=== PATIENT | female | born 1940 | race Caucasian/White ===

== ENCOUNTER 2016-12-20 10:28 | Inpatient (IN) | payer OTHER ==
[~2016-12-20] VITALS: Ht 149.9 cm; Wt 26.3 kg
[2016-12-20 10:31] VITALS: Ht 149.9 cm; Wt 26.3 kg
[2016-12-20] MEDS ORDERED: ASPIRIN 325 MG TAB PO STA (10:51)
--- NOTE | 2016-12-20 11:19 | ERD ---
ER Documentation Chief Complaint Chief Complaint chest pain today, sent by stephanie SALCEDO This is a 76-year-old [place] Citizen-speaking female with a known history of hypertension that went to her PCP today as she was complaining of chest pain upon awakening this morning roughly 6 hours prior to arrival. The patient stated the pain was a pressure-like sensation, 8 out of 10 in intensity with no radiation of the chest pain her neck arm back or jaw. The patient did not take any analgesic medication prior to arrival. She has had no fevers or shaking or chills. She denies any shortness of breath at rest or exertion no swelling of her lower extremities. The patient has had a previous bilateral mastectomy 30 years prior to arrival and 1 year ago [place] indicated she had an abdominal mass that was removed and has also had removal of 1 of her kidneys one year ago in [place]. She stated she was feeling a burning-like sensation in the mid chest wall but states she has had this in the past with GERD but indicates that the pressure in the left chest wall is new. Her PCP sent her immediately to the emergency department to be further evaluated. She states her symptoms are making her feel very anxious but she denies any suicidal homicidal thoughts or ideations ROS All systems reviewed and are negative except as per history of present illness. PMhx/Soc History of Surgery: Yes (MARQUES MASTECTOMY) Anesthesia Reaction: No Hx Neurological Disorder: No Hx Respiratory Disorders: No Hx Cardiac Disorders: Yes (HTN) Hx Psychiatric Problems: No Hx Miscellaneous Medical Probl: No Hx Alcohol Use: No Hx Substance Use: No Hx Tobacco Use: No Smoking Status: Never smoker Physical Exam Vitals Vital Signs Date Time Temp Pulse Resp B/P Pulse Ox O2 Delivery O2 Flow Rate FiO2 12/20/16 10:31 97.6 62 18 188/104 94 Physical Exam Constitutional:Well-developed. Well-nourished. HEENT:Normocephalic. Atraumatic.Pupils were equal round reactive to light. Moist mucous membranes.No tonsillar exudates. Neck: No nuchal rigidity. No lymphadenopathy. No posterior cervical spine tenderness or step-offs. Respiratory: Not using accessory muscles of respiration.Lungs were clear to auscultation bilaterally. No rhonchi. No rales. No wheezing. Cardiovascular: Regular rate regular rhythm.No murmurs. No rubs were appreciated.S1, S2 normal. Distal pulses are palpable 2+ bilaterally. GI: Abdomen was soft. Nontender. Non Distended. No pulsatile abdominal masses or bruits. No rebound. No guarding. Bowel sounds were present and normal. Muscle skeletal: Full range of motion of both the upper and lower extremities bilaterally.Normal muscle tone.No assymetrical calf tenderness or swelling. Skin: No petechia, no purpura. No lesions on the palms or the soles of the feet. No maculopapular rash. NEURO: Patient was alert, awake, orientated x3.No facial droop. Gait observed and normal with no ataxia.Speech had regular rate and rhythm. No focal neurological deficits. Results 24 hrs Laboratory Tests Test 12/20/16 11:03 White Blood Count Pending Red Blood Count Pending Hemoglobin Pending Hematocrit Pending Mean Corpuscular Volume Pending Mean Corpuscular Hemoglobin Pending Mean Corpuscular Hemoglobin Concent Pending Red Cell Distribution Width Pending Platelet Count Pending Mean Platelet Volume Pending Current Medications Medications (Trade) Dose Ordered Sig/Amanda Route PRN Reason Start Time Stop Time Status Last Admin Dose Admin Aspirin (Aspirin) 325 mg ONCE STAT PO 12/20/16 10:51 12/20/16 10:52 DC 12/20/16 11:18 Nitroglycerin (Nitroglycerin (Sl Tab) 0.4 Mg) 1 tab Q5M UP TO 3 DOSES PRN SL CHEST PAIN 12/20/16 11:30 12/20/16 11:18 Procedures/MDM The patient presented to the emergency department with chest pain. My clinical evaluation and workup was to distinguish minor causes of chest pain from acute life threatening conditions such as myocardial infarction, pulmonary embolism, aortic dissection, esophageal rupture, cardiac tamponade. The patient was placed on a personnel monitor and continuous pulse oximetry. IV access established by nursing staff. The patient was given 325 mg of aspirin and 0.4 mg of sublingual nitroglycerin with improvement of her chest pain. 12 Lead EKG tracing ordered and reviewed by myself showed: Normal sinus rhythm of 60 bpm and no arrhythmia. MN interval normal. QRS duration normal. No ST segment elevation No ST segment depression. No changes consistent with acute ischemia. Given the patient's multiple cardiac risk factors I did feel she required admission for serial 12-lead EKG tracings and cardiac set of enzymes. The patient will be admitted to the panel physician for observation Departure Diagnosis: Primary Impression: Chest pain Chest pain type: unspecified Qualified Code: R07.9 - Chest pain, unspecified type Condition: Serious HARJINDER MCDONALD Dec 20, 2016 11:19
--- NOTE | 2016-12-20 11:19 | ERD ---
ER Documentation Chief Complaint Chief Complaint chest pain today, sent by stephanie SALCEDO This is a 76-year-old [place]-speaking female with a known history of hypertension that went to her PCP today as she was complaining of chest pain upon awakening this morning roughly 6 hours prior to arrival. The patient stated the pain was a pressure-like sensation, 8 out of 10 in intensity with no radiation of the chest pain her neck arm back or jaw. The patient did not take any analgesic medication prior to arrival. She has had no fevers or shaking or chills. She denies any shortness of breath at rest or exertion no swelling of her lower extremities. The patient has had a previous bilateral mastectomy 30 years prior to arrival and 1 year ago [place] indicated she had an abdominal mass that was removed and has also had removal of 1 of her kidneys one year ago in [place]. She stated she was feeling a burning-like sensation in the mid chest wall but states she has had this in the past with GERD but indicates that the pressure in the left chest wall is new. Her PCP sent her immediately to the emergency department to be further evaluated. She states her symptoms are making her feel very anxious but she denies any suicidal homicidal thoughts or ideations ROS All systems reviewed and are negative except as per history of present illness. PMhx/Soc History of Surgery: Yes (MARQUES MASTECTOMY) Anesthesia Reaction: No Hx Neurological Disorder: No Hx Respiratory Disorders: No Hx Cardiac Disorders: Yes (HTN) Hx Psychiatric Problems: No Hx Miscellaneous Medical Probl: No Hx Alcohol Use: No Hx Substance Use: No Hx Tobacco Use: No Smoking Status: Never smoker Physical Exam Vitals Vital Signs Date Time Temp Pulse Resp B/P Pulse Ox O2 Delivery O2 Flow Rate FiO2 12/20/16 10:31 97.6 62 18 188/104 94 Physical Exam Constitutional:Well-developed. Well-nourished. HEENT:Normocephalic. Atraumatic.Pupils were equal round reactive to light. Moist mucous membranes.No tonsillar exudates. Neck: No nuchal rigidity. No lymphadenopathy. No posterior cervical spine tenderness or step-offs. Respiratory: Not using accessory muscles of respiration.Lungs were clear to auscultation bilaterally. No rhonchi. No rales. No wheezing. Cardiovascular: Regular rate regular rhythm.No murmurs. No rubs were appreciated.S1, S2 normal. Distal pulses are palpable 2+ bilaterally. GI: Abdomen was soft. Nontender. Non Distended. No pulsatile abdominal masses or bruits. No rebound. No guarding. Bowel sounds were present and normal. Muscle skeletal: Full range of motion of both the upper and lower extremities bilaterally.Normal muscle tone.No assymetrical calf tenderness or swelling. Skin: No petechia, no purpura. No lesions on the palms or the soles of the feet. No maculopapular rash. NEURO: Patient was alert, awake, orientated x3.No facial droop. Gait observed and normal with no ataxia.Speech had regular rate and rhythm. No focal neurological deficits. Results 24 hrs Laboratory Tests Test 12/20/16 11:03 White Blood Count Pending Red Blood Count Pending Hemoglobin Pending Hematocrit Pending Mean Corpuscular Volume Pending Mean Corpuscular Hemoglobin Pending Mean Corpuscular Hemoglobin Concent Pending Red Cell Distribution Width Pending Platelet Count Pending Mean Platelet Volume Pending Current Medications Medications (Trade) Dose Ordered Sig/Amanda Route PRN Reason Start Time Stop Time Status Last Admin Dose Admin Aspirin (Aspirin) 325 mg ONCE STAT PO 12/20/16 10:51 12/20/16 10:52 DC 12/20/16 11:18 Nitroglycerin (Nitroglycerin (Sl Tab) 0.4 Mg) 1 tab Q5M UP TO 3 DOSES PRN SL CHEST PAIN 12/20/16 11:30 12/20/16 11:18 Procedures/MDM The patient presented to the emergency department with chest pain. My clinical evaluation and workup was to distinguish minor causes of chest pain from acute life threatening conditions such as myocardial infarction, pulmonary embolism, aortic dissection, esophageal rupture, cardiac tamponade. The patient was placed on a nurse monitoring and continuous pulse oximetry. IV access established by nursing staff. The patient was given 325 mg of aspirin and 0.4 mg of sublingual nitroglycerin with improvement of her chest pain. 12 Lead EKG tracing ordered and reviewed by myself showed: Normal sinus rhythm of 60 bpm and no arrhythmia. ND interval normal. QRS duration normal. No ST segment elevation No ST segment depression. No changes consistent with acute ischemia. Given the patient's multiple cardiac risk factors I did feel she required admission for serial 12-lead EKG tracings and cardiac set of enzymes. The patient will be admitted to the panel physician for observation Departure Diagnosis: Primary Impression: Chest pain Chest pain type: unspecified Qualified Code: R07.9 - Chest pain, unspecified type Condition: Serious HARJINDER MCDONALD Dec 20, 2016 11:19
[2016-12-20] MEDS ORDERED: NITROGLYCERIN (SL) 0.4 MG TAB SL PRN ×2 (11:30→18:00)
--- NOTE | 2016-12-20 11:49 | RADRPT ---
PROCEDURE: XR Chest. CLINICAL INDICATION: Chest pain. TECHNIQUE: Single frontal view. COMPARISON: None. FINDINGS: There is mild atelectasis at the lung bases. There is elevation of the right hemidiaphragm. The heart size is normal. There is calcification in the aorta consistent with atherosclerosis. There is no pleural effusion. There is no pneumothorax. IMPRESSION: 1. Mild atelectasis at the lung bases. 2. Elevation of the right hemidiaphragm. 3. Atherosclerosis. 4. Otherwise unremarkable chest radiograph. RPTAT: QQ .Alexandru Quick MD, MD Date Time Electronically viewed and signed by .Alexandru Qucik MD, on 12/20/2016 11:48 .R/
[2016-12-20 17:23] VITALS: BP 179/87; PULSE 50; RESP 17
[2016-12-20] MEDS ORDERED: ONDANSETRON 4 MG INJ IV PRN (18:00)
[2016-12-20] MEDS ORDERED: BISACODYL (EC) 5 MG TAB PO PRN (18:00)
[2016-12-20] MEDS ORDERED: NACL 0.9% 3 ML SYG IV SCH (18:00)
[2016-12-20] MEDS ORDERED: HYDROCODONE/APAP (5/325) TAB PO PRN (18:00)
[2016-12-20] MEDS ORDERED: ZOLPIDEM 5 MG TAB PO PRN (18:00)
[2016-12-20] MEDS ORDERED: DOCUSATE SODIUM 100 MG CAP PO PRN (18:00)
[2016-12-20] MEDS ORDERED: MAGNESIUM HYDROXIDE 30ML CUP PO PRN (18:00)
[2016-12-20 19:54] VITALS: BP 171/83; RESP 16
[2016-12-20 20:03] VITALS: PULSE 40
[2016-12-20 20:15] VITALS: PULSE 50
--- NOTE | 2016-12-20 23:25 | QN ---
Documentation Comment [id number] APARNA PALACIO MD Dec 20, 2016 23:25
--- NOTE | 2016-12-20 23:25 | QN ---
Documentation Comment [id number] APARNA PALACIO MD Dec 20, 2016 23:25
--- NOTE | 2016-12-20 23:25 | QN ---
Documentation Comment [id number] APARNA PALACIO MD Dec 20, 2016 23:25
[2016-12-20] MEDS ORDERED: hydrALAzine 20 MG INJ IV PRN (23:30)
[2016-12-20 23:48] VITALS: BP 113/62; RESP 18
[2016-12-21] VITALS (11 sets, daily range): BP systolic 116–160; BP diastolic 68–78; PULSE 60–90; RESP 16–18
--- NOTE | 2016-12-21 04:58 | HP ---
DATE OF ADMISSION: 12/20/2016 HISTORY OF PRESENT ILLNESS: The patient is a 76-year-old female with a history of hypertension, history of mastectomy, history of appendectomy and hysterectomy. Presented with complaints of chest pain. The patient's EKG shows sinus bradycardia with nonspecific ST-T changes. The patient was seen by ER physician with blood pressure 188/104, and the patient is being admitted for further management. The patient received aspirin and nitroglycerin and is being admitted for further management. PAST MEDICAL HISTORY: Hypertension, hysterectomy, mastectomy, appendectomy. No history of CVA or dyslipidemia. ALLERGY HISTORY: NEGATIVE. FAMILY HISTORY: Hypertension. SOCIAL HISTORY: Negative. MEDICATION HISTORY: Home medication is not available. REVIEW OF SYSTEMS: HEENT: Unremarkable. RESPIRATORY: Unremarkable. CARDIOVASCULAR: No chest pain at the time of examination. ABDOMEN: Unremarkable. EXTREMITIES: Unremarkable. CENTRAL NERVOUS SYSTEM: Unremarkable. GENITOURINARY: Unremarkable. MUSCULOSKELETAL: Unremarkable. PHYSICAL EXAMINATION: GENERAL: The patient is awake, alert. VITAL SIGNS: Current heart rate 50, blood pressure 171/83. HEAD: Atraumatic, normocephalic. Pupils are equal, reactive. NECK: Supple. There is no JVD. LUNGS: Clear. CARDIOVASCULAR: S1, S2, normal. ABDOMEN: Soft. Bowel sounds present. No palpable mass or hepatosplenomegaly. No guarding, rebound tenderness. Surgical scar on the abdominal area. EXTREMITIES: No cyanosis, clubbing, edema. CENTRAL NERVOUS SYSTEM: The patient is awake, alert with no focal deficits. LABORATORY DATA: Sodium 143, potassium 4.5, AST 89, ALT 128. Chest x-ray: Mild atelectasis at lung bases, elevation of the right hemidiaphragm, atherosclerosis. IMPRESSION: 1. Acute coronary syndrome. 2. Hypertension. 3. History of appendectomy, hysterectomy and mastectomy. 4. Abnormal LFT. PLAN: To rule out ischemic heart disease _ continue aspirin, blood pressure control, 2D echo. Troponin will be sent. Cardiology consultation will be obtained. Orders were done. Dictated By: APARNA MCCOY/NTS Conf#: [id number] DID#: [id number] MTDD
[2016-12-21] MEDS ORDERED: PANTOPRAZOLE 40 MG INJ IV SCH (06:00)
[2016-12-21] MEDS: ACETAMINOPHEN 325 MG TAB PO PRN (08:39)
[2016-12-21] MEDS: NIFEdipine (XL) 60 MG TAB PO SCH (08:39)
[2016-12-21] MEDS: ENOXAPARIN 40 MG/0.4 ML SYG SC SCH (08:57)
--- NOTE | 2016-12-21 15:45 | CONS ---
Date/Time of Note Date/Time of Note DATE: 12/21/16 TIME: 15:44 Assessment/Plan Assessment/Plan Additional Assessment/Plan 76 yo with CP + risk factors - STRESS TEST ADVISED FOR TOMORROW - full note dictated # [id number] thank you Consultation Date/Type/Reason Admit Date/Time Dec 20, 2016 at 14:20 Initial Consult Date Exam/Review of Systems Vital Signs Vitals Vital Signs Date Time Temp Pulse Resp B/P Pulse Ox O2 Delivery O2 Flow Rate FiO2 12/21/16 15:24 98.0 73 17 135/68 92 12/20/16 16:26 Room Air Intake and Output 12/20/16 12/20/16 12/21/16 15:00 23:00 07:00 Intake Total 350 ml Output Total 1 ml Balance -1 ml 350 ml Results Result Diagram: 12/20/16 1103 12/21/16 0707 Results 24 hrs Laboratory Tests Test 12/20/16 18:13 12/21/16 00:42 12/21/16 07:07 Troponin I < 0.012 < 0.012 Triglycerides Level 251 H Cholesterol Level 168 LDL Cholesterol, Calculated 80 HDL Cholesterol 38 Cholesterol/HDL Ratio 4.4 Sodium Level 145 H Potassium Level 4.1 Chloride Level 107 Carbon Dioxide Level 26 Anion Gap 16 Blood Urea Nitrogen 19 Creatinine 0.87 Glucose Level 130 Calcium Level 8.9 Total Bilirubin 0.5 Direct Bilirubin 0.00 Indirect Bilirubin 0.5 Aspartate Amino Transf (AST/SGOT) 98 H Alanine Aminotransferase (ALT/SGPT) 124 H Alkaline Phosphatase 103 Total Protein 7.4 Albumin 4.4 Globulin 3.00 Albumin/Globulin Ratio 1.46 Medications Medications Current Medications Aspirin (Aspirin) 81 mg DAILY PO ; Start 12/22/16 at 09:00 Nitroglycerin (Nitroglycerin (Sl Tab) 0.4 Mg) 1 tab Q5M PRN SL CHEST PAIN; Start 12/20/16 at 18:00 Ondansetron HCl (Zofran Inj) 4 mg Q6H PRN IV NAUSEA AND/OR VOMITING; Start at 18:00 Acetaminophen (Tylenol Tab) 650 mg Q6H PRN PO PAIN LEVEL 1-3 OR FEVER Last administered on 12/21/16t 08:39; Admin Dose 650 MG; Start 12/20/16 at 18:00 Acetaminophen/ Hydrocodone Bitart ([place] (5/325)) 1 tab Q6H PRN PO MODERATE PAIN LEVEL 4-6; Start 12/20/16 at 18:00 Docusate Sodium (Colace) 100 mg Q12H PRN PO CONSTIPATION; Start 12/20/16 at 18 :00 Magnesium Hydroxide (Milk Of Mag) 30 ml DAILY PRN PO CONSTIPATION; Start 12/20 at 18:00 Bisacodyl (Dulcolax) 5 mg DAILY PRN PO CONSTIPATION; Start 12/20/16 at 18:00 Zolpidem Tartrate (Ambien) 5 mg QHS PRN PO SLEEP; Start 12/20/16 at 18:00 Pantoprazole (Protonix Iv) 40 mg DAILY@06 IV Last administered on 12/21/16 06 :35; Admin Dose 40 MG; Start 12/21/16 at 06:00 Enoxaparin Sodium (Lovenox) 40 mg DAILY SC Last administered on 12/21/16 08: 57; Admin Dose 40 MG; Start 12/21/16 at 09:00 Nifedipine (Procardia Xl) 60 mg DAILY PO Last administered on 12/21/16 08:39 ; Admin Dose 60 MG; Start 12/21/16 at 09:00 Hydralazine HCl (Apresoline) 10 mg Q6H PRN IV FOR SBP ABOVE 165; Start at 23:30 SARAH VALDEZ MD Dec 21, 2016 15:45
--- NOTE | 2016-12-21 18:01 | PN ---
Date/Time of Note Date/Time of Note DATE: 12/21/16 TIME: 18:00 Assessment/Plan VTE Prophylaxis VTE Prophylaxis Intervention: other Lines/Catheters IV Catheter Type (from Nrs): [place] [facility] Urinary Cath still in place: No Assessment/Plan Chief Complaint/Hosp Course IMPRESSION: 1. Acute coronary syndrome. 2. Hypertension. 3. History of appendectomy, hysterectomy and mastectomy. 4. Abnormal LFT. plan per dr adamson Problems: Subjective 24 Hr Interval Summary Cardiovascular: no complaints Gastrointestinal: no complaints Exam/Review of Systems Vital Signs Vitals Vital Signs Date Time Temp Pulse Resp B/P Pulse Ox O2 Delivery O2 Flow Rate FiO2 12/21/16 16:00 71 12/21/16 15:24 98.0 17 135/68 92 12/20/16 16:26 Room Air Intake and Output 12/20/16 12/20/16 12/21/16 15:00 23:00 07:00 Intake Total 350 ml Output Total 1 ml Balance -1 ml 350 ml Exam Respiratory: clear to auscultation Cardiovascular: regular rate and rhythm Gastrointestinal: soft Results Result Diagram: 12/20/16 1103 12/21/16 0707 Results 24 hrs Laboratory Tests Test 12/20/16 18:13 12/21/16 00:42 12/21/16 07:07 Troponin I < 0.012 < 0.012 Triglycerides Level 251 H Cholesterol Level 168 LDL Cholesterol, Calculated 80 HDL Cholesterol 38 Cholesterol/HDL Ratio 4.4 Sodium Level 145 H Potassium Level 4.1 Chloride Level 107 Carbon Dioxide Level 26 Anion Gap 16 Blood Urea Nitrogen 19 Creatinine 0.87 Glucose Level 130 Calcium Level 8.9 Total Bilirubin 0.5 Direct Bilirubin 0.00 Indirect Bilirubin 0.5 Aspartate Amino Transf (AST/SGOT) 98 H Alanine Aminotransferase (ALT/SGPT) 124 H Alkaline Phosphatase 103 Total Protein 7.4 Albumin 4.4 Globulin 3.00 Albumin/Globulin Ratio 1.46 Medications Medications Current Medications Aspirin (Aspirin) 81 mg DAILY PO ; Start 12/22/16 at 09:00 Nitroglycerin (Nitroglycerin (Sl Tab) 0.4 Mg) 1 tab Q5M PRN SL CHEST PAIN; Start 12/20/16 at 18:00 Ondansetron HCl (Zofran Inj) 4 mg Q6H PRN IV NAUSEA AND/OR VOMITING; Start at 18:00 Acetaminophen (Tylenol Tab) 650 mg Q6H PRN PO PAIN LEVEL 1-3 OR FEVER Last administered on 12/21/16 08:39; Admin Dose 650 MG; Start 12/20/16 at 18:00 Acetaminophen/ Hydrocodone Bitart ([place] (5/325)) 1 tab Q6H PRN PO MODERATE PAIN LEVEL 4-6; Start 12/20/16 at 18:00 Docusate Sodium (Colace) 100 mg Q12H PRN PO CONSTIPATION; Start 12/20/16 at 18 :00 Magnesium Hydroxide (Milk Of Mag) 30 ml DAILY PRN PO CONSTIPATION; Start 12/20 at 18:00 Bisacodyl (Dulcolax) 5 mg DAILY PRN PO CONSTIPATION; Start 12/20/16 at 18:00 Zolpidem Tartrate (Ambien) 5 mg QHS PRN PO SLEEP; Start 12/20/16 at 18:00 Pantoprazole (Protonix Iv) 40 mg DAILY@06 IV Last administered on 12/21/16 06 :35; Admin Dose 40 MG; Start 12/21/16 at 06:00 Enoxaparin Sodium (Lovenox) 40 mg DAILY SC Last administered on 12/21/16 08: 57; Admin Dose 40 MG; Start 12/21/16 at 09:00 Nifedipine (Procardia Xl) 60 mg DAILY PO Last administered on 12/21/16 08:39 ; Admin Dose 60 MG; Start 12/21/16 at 09:00 Hydralazine HCl (Apresoline) 10 mg Q6H PRN IV FOR SBP ABOVE 165; Start at 23:30 APARNA PALACIO MD Dec 21, 2016 18:01
[2016-12-22] VITALS (10 sets, daily range): BP systolic 111–136; BP diastolic 66–75; PULSE 62–94; RESP 16–17
--- NOTE | 2016-12-22 05:44 | CONS ---
DATE OF ADMISSION: 12/20/2016 DATE OF CONSULTATION: 12/21/2016 TYPE OF CONSULTATION: Cardiology. REFERRING PHYSICIAN: Dane Wing MD REASON FOR EVALUATION: Chest pain, hypertension. HISTORY OF PRESENT ILLNESS: Ms. Rubio is a 76-year-old woman with history of hypertension, dyslipi demia, history of breast cancer with mastectomy, who comes to the hospital now for evaluation of [facility] discomfort as well as hypertension. The patient does not report any chest pain to me. At this p articular moment her blood pressure is much better controlled. Based on evaluation here, I do not s ee any evidence of ischemic risk stratification. I think it would be reasonable for the patient to have a stress test, which we will try to facilitate for tomorrow. PAST MEDICAL HISTORY: 1. Hypertension. 2. Dyslipidemia. 3. Possible history of coronary artery disease. 4. History of mastectomy prior. ALLERGIES: NO KNOWN DRUG ALLERGIES. SOCIAL HISTORY: The patient does not smoke, does not drink, does not use drugs. FAMILY HISTORY: Negative for sudden cardiac or premature coronary artery disease. MEDICATIONS: Here include: 1. Aspirin 81 mg a day. 2. Lovenox 40 mg subcu daily. 3. Nifedipine 60 mg ____. 4. Pantoprazole. 5. Hydralazine. 6. Nitroglycerin. 7. Magnesium hydroxide. 8. She is not on a beta halle, has relative bradycardia. REVIEW OF SYSTEMS: CONSTITUTIONAL: No fevers, no chills, no recent weight changes. HEENT: No changes in vision or hearing. CARDIAC: Chest pain reported. RESPIRATORY: No shortness of breath. GASTROINTESTINAL: No nausea, vomiting, diarrhea, constipation. GENITOURINARY: No dysuria or hematuria. NEUROLOGIC: No focal neurologic deficits. ____ PSYCHIATRIC: No history of psychiatric illness. PHYSICAL EXAMINATION: VITAL SIGNS: Temperature is 98.0, heart rate ____, blood pressure ____. GENERAL: She is a well-nourished woman in no acute distress, alert and oriented x3, aware of her me dical condition. HEAD: Normocephalic, atraumatic. Eyes anicteric. NECK: Supple. JVD 6-7 cm. There is no lymphadenopathy, no thyromegaly. HEART: Regular, soft holosystolic murmur ____. PMI is nondisplaced. I do not hear an S3. LUNGS: Coarse at bases. ABDOMEN: Distended, bowel sounds are present. There is no hepatosplenomegaly. JVD is noted. EXTREMITIES: Show no clubbing, cyanosis, edema. ECG read by me shows sinus bradycardia at a rate of [address]-T changes. LABORATORY DATA: White blood cell count of 5.1, hemoglobin is 14.9, platelets 119. INR is 1.0. So dium 145, potassium 4.1. Troponin is negative at 0.012. ASSESSMENT AND PLAN: 1. Chest pain. The patient reports chest pain, has multiple risk factors for coronary artery disea se. Will risk stratify the patient with a stress test while she is in the hospital. Troponins are negative. Continue to manage medically. 2. Bradycardia. The patient has relative bradycardia. Continue to hold beta blockers. We will co ntinue to follow. 3. Transaminitis. The patient has elevated AST and ALT. Will defer to primary team for evaluation and management. 3. History of hypertension. Blood pressure improved. Will medically manage. I would like to thank Dr. Wing for referring this patient for my evaluation. Dictated By: SARAH SAHA/RENETTA Conf#: [id number] DID#: [id number]
[2016-12-22] MEDS: PANTOPRAZOLE (EC) 40 MG TAB PO SCH (06:35)
[2016-12-22] MEDS: NIFEdipine (XL) 60 MG TAB PO SCH (08:06)
[2016-12-22] MEDS: ASPIRIN 81 MG TAB PO SCH (08:06)
[2016-12-22] MEDS: ENOXAPARIN 40 MG/0.4 ML SYG SC SCH (08:07)
[2016-12-22] MEDS ORDERED: REGADENOSON 0.4 MG/5 ML SYG ONE (12:55)
--- NOTE | 2016-12-22 13:04 | CONS ---
Date/Time of Note Date/Time of Note DATE: 12/22/16 TIME: 12:59 Assessment/Plan Assessment/Plan Chief Complaint/Hosp Course IMP: 1.Chest pain-negatve trop x 3 2.HTN 3.Bradycardia 4.Increased LFT's 5.Dyslipidemia-low HDL Recc: -Tele -serial ecg's -Continue asa -procardia XL -Lexiscan stress test today Problems: Consultation Date/Type/Reason Admit Date/Time Dec 20, 2016 at 14:20 Initial Consult Date 12/21/2016 Type of Consultation: cardiology Reason for Consultation chest pain Referring Provider: APARNA PALACIO MD Exam/Review of Systems Vital Signs Vitals Vital Signs Date Time Temp Pulse Resp B/P Pulse Ox O2 Delivery O2 Flow Rate FiO2 12/22/16 08:00 87 12/22/16 07:53 98.0 17 136/75 92 12/20/16 16:26 Room Air Intake and Output 12/21/16 12/21/16 12/22/16 15:00 23:00 07:00 Intake Total 850 ml 400 ml Balance 850 ml 400 ml Exam Review of Systems: CONSTITUTIONAL: No fevers, chills. PULMONARY: No sob CARDIOVASCULAR: No chest pain/palpitations GASTROINTESTINAL: No nausea/vomiting. GENITOURINARY: No hematuria/dysuria. MUSCULOSKELETAL: No myagias/arthalgias. PSYCHIATRIC: The patient denies depression. NEUROLOGIC: No weakness Constitutional: alert Psych: no complaints Head: normocephalic ENMT: mucosa pink and moist Neck: jvd (9 cm water), supple Respiratory: diminished breath sounds Cardiovascular: regular rate and rhythm Gastrointestinal: non-tender, soft Musculoskeletal: muscle tone (normal) Extremities: edema (none) Neurological: other (No focal deficits) Results Result Diagram: 12/20/16 1103 12/21/16 0707 Medications Medications Current Medications Aspirin (Aspirin) 81 mg DAILY PO Last administered on 12/22/16t 08:06; Admin Dose 81 MG; Start 12/22/16 at 09:00 Nitroglycerin (Nitroglycerin (Sl Tab) 0.4 Mg) 1 tab Q5M PRN SL CHEST PAIN; Start 12/20/16 at 18:00 Ondansetron HCl (Zofran Inj) 4 mg Q6H PRN IV NAUSEA AND/OR VOMITING; Start at 18:00 Acetaminophen (Tylenol Tab) 650 mg Q6H PRN PO PAIN LEVEL 1-3 OR FEVER Last administered on 12/21/16 08:39; Admin Dose 650 MG; Start 12/20/16 at 18:00 Acetaminophen/ Hydrocodone Bitart ([place] (5/325)) 1 tab Q6H PRN PO MODERATE PAIN LEVEL 4-6; Start 12/20/16 at 18:00 Docusate Sodium (Colace) 100 mg Q12H PRN PO CONSTIPATION; Start 12/20/16 at 18 :00 Magnesium Hydroxide (Milk Of Mag) 30 ml DAILY PRN PO CONSTIPATION; Start 12/20 at 18:00 Bisacodyl (Dulcolax) 5 mg DAILY PRN PO CONSTIPATION; Start 12/20/16 at 18:00 Zolpidem Tartrate (Ambien) 5 mg QHS PRN PO SLEEP; Start 12/20/16 at 18:00 Enoxaparin Sodium (Lovenox) 40 mg DAILY SC Last administered on 12/22/16 08:07 ; Admin Dose 40 MG; Start 12/21/16 at 09:00 Nifedipine (Procardia Xl) 60 mg DAILY PO Last administered on 12/22/16 08:06; Admin Dose 60 MG; Start 12/21/16 at 09:00 Hydralazine HCl (Apresoline) 10 mg Q6H PRN IV FOR SBP ABOVE 165; Start at 23:30 Pantoprazole (Protonix Tab) 40 mg DAILY@06 PO Last administered on 12/22/16 06 :35; Admin Dose 40 MG; Start 12/22/16 at 06:00 ERIN BECKMAN Dec 22, 2016 13:04
--- NOTE | 2016-12-22 14:11 | RADRPT ---
PROCEDURE: Lexiscan myocardial perfusion study CLINICAL INDICATION: 76 -year-old patient complaining of chest pain. TECHNIQUE: Lexiscan 0.4 mg intravenously separate acquisition gated myocardial perfusion SPECT usi ng Tc 99m Myoview 30.0 mCi intravenously at stress and Tc-99m Myoview, 10.0 mCi intravenously at res t was performed using the rest/stress sequence. Poststress Myoview SPECT images were obtained in th e supine position. COMPARISON: No prior studies. FINDINGS: Perfusion images reveal no evidence of perfusion defects. Lexiscan post stress gated SPECT images demonstrate no wall motion abnormalities. IMPRESSION: 1. No evidence of perfusion defects. 2. No wall motion abnormalities. 3. The left ventricle ejection fraction at stress is greater than 70%. A call report was made to Dr Ruiz on 12/22/2016 at 2 pm. RPTAT: HH .Debi Frank MD, Date Time Electronically viewed and signed by .Debi Frank MD, on 12/22/2016 14:10 .L/
[2016-12-22] MEDS: ACETAMINOPHEN 325 MG TAB PO PRN (14:28)
--- NOTE | 2016-12-22 17:51 | RADRPT ---
PROCEDURE: US Abdomen and Retroperitoneum. CLINICAL INDICATION: Elevated liver function tests. History of left nephrectomy. TECHNIQUE: Multiple real-time longitudinal and transverse images were acquired of the patient's ab domen and retroperitoneum utilizing a curved array transducer. COMPARISON: No prior studies are available for comparison. FINDINGS: The liver is normal in size and diffusely increased in echogenicity. The liver has a normal smooth surface. There is no focal hepatic lesion. Color Doppler and pulsed Doppler sonography demonstrate n ormal antegrade flow in the portal vein. The gallbladder is normal with no stones or wall thickening. The bile ducts are normal with the common bile duct measuring 4.3 mm in diameter. The spleen is normal in size. There is no focal splenic lesion. The pancreas is partially seen and is unremarkable. There is no free fluid. The right kidney measures 11.2 x 4.8 x 6.0 cm and the left kidney is surgically absent. There is no right renal mass, hydronephrosis, or calculus. The abdominal aorta is not dilated. The inferior vena cava is unremarkable. IMPRESSION: 1. Fatty metamorphosis of the liver. 2. Status post left nephrectomy. 3. Otherwise normal ultrasound of the abdomen and retroperitoneum. RPTAT: QQ .Alexandru Quick MD, MD Date Time Electronically viewed and signed by .Alexandru Quick MD, on 12/22/2016 17:51 .R/
--- NOTE | 2016-12-22 18:55 | PN ---
Date/Time of Note Date/Time of Note DATE: 12/22/16 TIME: 18:54 Assessment/Plan VTE Prophylaxis VTE Prophylaxis Intervention: other Lines/Catheters IV Catheter Type (from Nrs): Saline Lock Urinary Cath still in place: No Assessment/Plan Chief Complaint/Hosp Course IMPRESSION: 1. Acute coronary syndrome. 2. Hypertension. 3. History of appendectomy, hysterectomy and mastectomy. 4. Abnormal LFT.fatty liver plan per dr adamson ck labs lexiscan Problems: Subjective 24 Hr Interval Summary Respiratory: no complaints Cardiovascular: no complaints Gastrointestinal: no complaints Genitourinary: no complaints Exam/Review of Systems Vital Signs Vitals Vital Signs Date Time Temp Pulse Resp B/P Pulse Ox O2 Delivery O2 Flow Rate FiO2 12/22/16 16:00 94 12/22/16 15:20 97.9 17 127/66 91 12/20/16 16:26 Room Air Intake and Output 12/21/16 12/21/16 12/22/16 15:00 23:00 07:00 Intake Total 850 ml 400 ml Balance 850 ml 400 ml Exam Neck: supple Respiratory: clear to auscultation Cardiovascular: regular rate and rhythm Gastrointestinal: bowel sounds (+), soft Extremities: No edema Results Result Diagram: 12/20/16 1103 12/21/16 0707 Medications Medications Current Medications Aspirin (Aspirin) 81 mg DAILY PO Last administered on 12/22/16 08:06; Admin Dose 81 MG; Start 12/22/16 at 09:00 Nitroglycerin (Nitroglycerin (Sl Tab) 0.4 Mg) 1 tab Q5M PRN SL CHEST PAIN; Start 12/20/16 at 18:00 Ondansetron HCl (Zofran Inj) 4 mg Q6H PRN IV NAUSEA AND/OR VOMITING; Start at 18:00 Acetaminophen (Tylenol Tab) 650 mg Q6H PRN PO PAIN LEVEL 1-3 OR FEVER Last administered on 12/22/16 14:28; Admin Dose 650 MG; Start 12/20/16 at 18:00 Acetaminophen/ Hydrocodone Bitart ([place] (5/325)) 1 tab Q6H PRN PO MODERATE PAIN LEVEL 4-6; Start 12/20/16 at 18:00 Docusate Sodium (Colace) 100 mg Q12H PRN PO CONSTIPATION; Start 12/20/16 at 18 :00 Magnesium Hydroxide (Milk Of Mag) 30 ml DAILY PRN PO CONSTIPATION; Start 12/20 at 18:00 Bisacodyl (Dulcolax) 5 mg DAILY PRN PO CONSTIPATION; Start 12/20/16 at 18:00 Zolpidem Tartrate (Ambien) 5 mg QHS PRN PO SLEEP; Start 12/20/16 at 18:00 Enoxaparin Sodium (Lovenox) 40 mg DAILY SC Last administered on 12/22/16 08:07 ; Admin Dose 40 MG; Start 12/21/16 at 09:00 Nifedipine (Procardia Xl) 60 mg DAILY PO Last administered on 12/22/16 08:06; Admin Dose 60 MG; Start 12/21/16 at 09:00 Hydralazine HCl (Apresoline) 10 mg Q6H PRN IV FOR SBP ABOVE 165; Start at 23:30 Pantoprazole (Protonix Tab) 40 mg DAILY@06 PO Last administered on 12/22/16 06 :35; Admin Dose 40 MG; Start 12/22/16 at 06:00 APARNA PALACIO MD Dec 22, 2016 18:55
--- NOTE | 2016-12-22 20:51 | RADRPT ---
Echocardiogram Report Patient Name: GERMAINE PICKENS Gender: Female Date: 1940 Study Date: 21-Dec-2016 Production Trainer: Ben See RUST Location: [facility] Ref. Physician: APARNA PALACIO Quality: Good Procedures: Transthoracic echocardiogram with complete 2D, M-Mode, and doppler examination. Indications: Coronary Artery Disease. 2D/M Mode Doppler Measurement Value Normal Ranges Measurement Value Normal Ranges LVIDd 2D 4.4 3.5 - 5.6 cm AV Peak [place] 1.2 m/sec LVIDs 2D 2.0 2.1 - 4.1 cm AV Peak PG 6.0 mmHg FS 2D 54.9 % LVOT Peak [place] 0.9 m/sec LVPWd 2D 1.0 0.6 - 1.1 cm LVOT Peak PG 3.0 mmHg IVSd 2D 1.1 0.6 - 1.1 cm MV E Peak [place] 0.5 m/sec IVS/LVPW 2D 1.1 MV A Peak [place] 0.9 m/sec AoR Diam 2D 2.7 2.0 - 3.7 cm MV E/A 0.5 LA/Ao 2D 1 0 - 1 MV Decel Time 183 msec EDV 2D 85.8 cm3 MV E/A 0.5 ESV 2D 7.9 cm3 TR Peak Kwab[place] 2.5 m/sec LA Dimen 2D 3.0 2.3 - 4.0 cm TR Peak PG 25.0 mmHg RVSP 28.0 mmHg Findings Left Ventricle: Normal left ventricular systolic function. Normal left ventricular cavity size. Mild concentric left ventricular hypertrophy. Ejection fraction is visually estimated at 6065 %. Tissue Doppler/Mitral Doppler indices are consistent with impaired relaxation (Stage I diastolic dysfunction). Right Ventricle: Normal right ventricular size. Normal right ventricular systolic function. Left Atrium: The left atrium is normal in size. Right Atrium: The right atrium is normal in size. Mitral Valve: Normal appearance and function of the mitral valve with trace physiologic regurgitation. Aortic Valve: No significant aortic stenosis or insufficiency. Aortic cusps appear mildly calcified. Tricuspid Valve: Normal appearance of the tricuspid valve. Estimated peak PA systolic pressure 28 mmHg. There is mild tricuspid regurgitation. Pulmonic Valve: Pulmonic valve not well visualized. Pericardium: Normal pericardium with no significant pericardial effusion. Aorta: Normal aortic root. IVC: Normal size and normal respiratory collapse consistent with normal right atrial pressure. Conclusions 1.Normal left ventricular systolic function. Normal left ventricular cavity size. Mild concentric left ventricular hypertrophy. Ejection fraction is visually estimated at 60-65 %. Tissue Doppler/Mitral Doppler indices are consistent with impaired relaxation (Stage I diastolic dysfunction). 2.Normal appearance and function of the mitral valve with trace physiologic regurgitation. 3.Normal appearance of the tricuspid valve. Estimated peak PA systolic pressure 28 mmHg. There is mild tricuspid regurgitation. Electronically Signed By: Mehdi Gutierrez 22-Dec-2016 20:50:36 -0700 Patient Name: GERMAINE PICKENS Study Date: 21-Dec-2016 [id number]
--- NOTE | 2016-12-22 20:51 | RADRPT ---
Echocardiogram Report Patient Name: GERMAINE PICKESN Gender: Female Date: 1940 Study Date: 21-Dec-2016 Clinic Nurse: Ben See [facility] Location: [facility] Ref. Physician: APARNA PALACIO Quality: Good Procedures: Transthoracic echocardiogram with complete 2D, M-Mode, and doppler examination. Indications: Coronary Artery Disease. 2D/M Mode Doppler Measurement Value Normal Ranges Measurement Value Normal Ranges LVIDd 2D 4.4 3.5 - 5.6 cm AV Peak [place] 1.2 m/sec LVIDs 2D 2.0 2.1 - 4.1 cm AV Peak PG 6.0 mmHg FS 2D 54.9 % LVOT Peak [place] 0.9 m/sec LVPWd 2D 1.0 0.6 - 1.1 cm LVOT Peak PG 3.0 mmHg IVSd 2D 1.1 0.6 - 1.1 cm MV E Peak [place] 0.5 m/sec IVS/LVPW 2D 1.1 MV A Peak [place] 0.9 m/sec AoR Diam 2D 2.7 2.0 - 3.7 cm MV E/A 0.5 LA/Ao 2D 1 0 - 1 MV Decel Time 183 msec EDV 2D 85.8 cm3 MV E/A 0.5 ESV 2D 7.9 cm3 TR Peak [place] 2.5 m/sec LA Dimen 2D 3.0 2.3 - 4.0 cm TR Peak PG 25.0 mmHg RVSP 28.0 mmHg Findings Left Ventricle: Normal left ventricular systolic function. Normal left ventricular cavity size. Mild concentric left ventricular hypertrophy. Ejection fraction is visually estimated at 6065 %. Tissue Doppler/Mitral Doppler indices are consistent with impaired relaxation (Stage I diastolic dysfunction). Right Ventricle: Normal right ventricular size. Normal right ventricular systolic function. Left Atrium: The left atrium is normal in size. Right Atrium: The right atrium is normal in size. Mitral Valve: Normal appearance and function of the mitral valve with trace physiologic regurgitation. Aortic Valve: No significant aortic stenosis or insufficiency. Aortic cusps appear mildly calcified. Tricuspid Valve: Normal appearance of the tricuspid valve. Estimated peak PA systolic pressure 28 mmHg. There is mild tricuspid regurgitation. Pulmonic Valve: Pulmonic valve not well visualized. Pericardium: Normal pericardium with no significant pericardial effusion. Aorta: Normal aortic root. IVC: Normal size and normal respiratory collapse consistent with normal right atrial pressure. Conclusions 1.Normal left ventricular systolic function. Normal left ventricular cavity size. Mild concentric left ventricular hypertrophy. Ejection fraction is visually estimated at 60-65 %. Tissue Doppler/Mitral Doppler indices are consistent with impaired relaxation (Stage I diastolic dysfunction). 2.Normal appearance and function of the mitral valve with trace physiologic regurgitation. 3.Normal appearance of the tricuspid valve. Estimated peak PA systolic pressure 28 mmHg. There is mild tricuspid regurgitation. Electronically Signed By: Mehdi Gutierrez 22-Dec-2016 20:50:36 -0700 Patient Name: GERMAINE PICKENS Study Date: 21-Dec-2016 [id number]
--- NOTE | 2016-12-22 20:51 | RADRPT ---
Echocardiogram Report Patient Name: GERMAINE PICKENS Gender: Female Date: 1940 Study Date: 21-Dec-2016 Barrel Roller: Ben See [facility] Location: [facility] Ref. Physician: APARNA PALACIO Quality: Good Procedures: Transthoracic echocardiogram with complete 2D, M-Mode, and doppler examination. Indications: Coronary Artery Disease. 2D/M Mode Doppler Measurement Value Normal Ranges Measurement Value Normal Ranges LVIDd 2D 4.4 3.5 - 5.6 cm AV Peak [place] 1.2 m/sec LVIDs 2D 2.0 2.1 - 4.1 cm AV Peak PG 6.0 mmHg FS 2D 54.9 % LVOT Peak [place] 0.9 m/sec LVPWd 2D 1.0 0.6 - 1.1 cm LVOT Peak PG 3.0 mmHg IVSd 2D 1.1 0.6 - 1.1 cm MV E Peak [place] 0.5 m/sec IVS/LVPW 2D 1.1 MV A Peak [place] 0.9 m/sec AoR Diam 2D 2.7 2.0 - 3.7 cm MV E/A 0.5 LA/Ao 2D 1 0 - 1 MV Decel Time 183 msec EDV 2D 85.8 cm3 MV E/A 0.5 ESV 2D 7.9 cm3 TR Peak [place] 2.5 m/sec LA Dimen 2D 3.0 2.3 - 4.0 cm TR Peak PG 25.0 mmHg RVSP 28.0 mmHg Findings Left Ventricle: Normal left ventricular systolic function. Normal left ventricular cavity size. Mild concentric left ventricular hypertrophy. Ejection fraction is visually estimated at 6065 %. Tissue Doppler/Mitral Doppler indices are consistent with impaired relaxation (Stage I diastolic dysfunction). Right Ventricle: Normal right ventricular size. Normal right ventricular systolic function. Left Atrium: The left atrium is normal in size. Right Atrium: The right atrium is normal in size. Mitral Valve: Normal appearance and function of the mitral valve with trace physiologic regurgitation. Aortic Valve: No significant aortic stenosis or insufficiency. Aortic cusps appear mildly calcified. Tricuspid Valve: Normal appearance of the tricuspid valve. Estimated peak PA systolic pressure 28 mmHg. There is mild tricuspid regurgitation. Pulmonic Valve: Pulmonic valve not well visualized. Pericardium: Normal pericardium with no significant pericardial effusion. Aorta: Normal aortic root. IVC: Normal size and normal respiratory collapse consistent with normal right atrial pressure. Conclusions 1.Normal left ventricular systolic function. Normal left ventricular cavity size. Mild concentric left ventricular hypertrophy. Ejection fraction is visually estimated at 60-65 %. Tissue Doppler/Mitral Doppler indices are consistent with impaired relaxation (Stage I diastolic dysfunction). 2.Normal appearance and function of the mitral valve with trace physiologic regurgitation. 3.Normal appearance of the tricuspid valve. Estimated peak PA systolic pressure 28 mmHg. There is mild tricuspid regurgitation. Electronically Signed By: Mehdi Gutierrez 22-Dec-2016 20:50:36 -0700 Patient Name: GERMAINE PICKENS Study Date: 21-Dec-2016 [id number]
[2016-12-23] VITALS (8 sets, daily range): BP systolic 109–112; BP diastolic 65–77; PULSE 63–92; RESP 16–18
--- NOTE | 2016-12-23 01:40 | CARRPT ---
DATE OF PROCEDURE: 12/22/2016 TYPE OF PROCEDURE: Lexiscan Cardiolite stress test, electrocardiogram portion. INDICATION: Chest pain, assess for ischemia. BASELINE VITAL SIGNS AND ELECTROCARDIOGRAM: Pulse 83, blood pressure 136/73. Electrocardiogram wit h normal sinus rhythm, rate of 83, with a left axis deviation, nonspecific ST-T abnormalities diffus jaycee. PROCEDURE: Patient underwent standard Lexiscan infusion protocol over 10 seconds followed by radiot racer. The patient's test was stopped due to completion of protocol. Maximum achieved blood pressu re during the test 156/73. Maximum achieved heart rate during the test 98. ELECTROCARDIOGRAM FINDINGS: The patient did not develop any new Lexiscan-induced ST or T-wave zhou es from baseline abnormalities. No documented PVCs. SYMPTOMS: The patient had complaints of mild chest pain during stress testing, resolved in recovery . IMPRESSION: 1. No Lexiscan-induced ST or T-wave changes from baseline abnormalities or diagnostic cardiac ische veena. 2. Positive complaints of chest pain during stress test, resolved in recovery. 3. No documented premature ventricular contractions during stress testing. 4. Report of nuclear images to follow in separate dictation. Dictated By: ERIN ABREU/RENETTA Conf#: [id number] DID#: [id number] CC: APARNA PALACIO MD;*EndCC*
[2016-12-23] MEDS: PANTOPRAZOLE (EC) 40 MG TAB PO SCH (06:05)
[2016-12-23] MEDS: ASPIRIN 81 MG TAB PO SCH (10:20)
[2016-12-23] MEDS: ENOXAPARIN 40 MG/0.4 ML SYG SC SCH (10:22)
--- NOTE | 2016-12-23 11:49 | PDOCDIS ---
Discharge Instructions CONDITION Patient Condition: Stable HOME CARE INSTRUCTIONS: Special Diet: cardiac diet ACTIVITY: Activity Restrictions: Slowly Increase Activity FOLLOW UP/APPOINTMENTS Follow-up Plan f/u own pcp [address] singleton 1 wk APARNA PALACIO MD Dec 23, 2016 11:49
[2016-12-23] MEDS ORDERED: NIFE60TA7 PO (11:52)
[2016-12-23] MEDS ORDERED: NIT4 SL (11:52)
[2016-12-23] MEDS: NIFEdipine (XL) 60 MG TAB PO SCH (12:00)
--- NOTE | 2016-12-23 12:31 | CONS ---
Date/Time of Note Date/Time of Note DATE: 12/23/16 TIME: 12:29 Assessment/Plan Assessment/Plan Chief Complaint/Hosp Course IMP: 1.Chest pain-negatve trop x 3/NL EF by echo and no ischemia with NL EF by lexiscan 2.HTN 3.Bradycardia 4.Increased LFT's 5.Dyslipidemia-low HDL Recc: -Tele -serial ecg's -Continue asa -Decrease procardia XL dose and follow marginal BP and give as tolerated only -Check orthostatics as c/o weakness/dizziness with standing Problems: Consultation Date/Type/Reason Admit Date/Time Dec 20, 2016 at 14:20 Initial Consult Date 12/21/2016 Type of Consultation: cardiology Reason for Consultation Chest pain Referring Provider: APARNA PALACIO MD Exam/Review of Systems Vital Signs Vitals Vital Signs Date Time Temp Pulse Resp B/P Pulse Ox O2 Delivery O2 Flow Rate FiO2 12/23/16 12:13 92 12/23/16 11:30 98.2 17 109/77 95 12/20/16 16:26 Room Air Intake and Output 12/22/16 12/22/16 12/23/16 15:00 23:00 07:00 Intake Total 250 ml 125 ml Balance 250 ml 125 ml Exam Review of Systems: CONSTITUTIONAL: No fevers, chills. PULMONARY: No sob CARDIOVASCULAR: No chest pain/palpitations GASTROINTESTINAL: No nausea/vomiting. GENITOURINARY: No hematuria/dysuria. MUSCULOSKELETAL: No myagias/arthalgias. PSYCHIATRIC: The patient denies depression. NEUROLOGIC: No weakness Constitutional: alert, oriented Psych: no complaints Head: normocephalic ENMT: mucosa pink and moist Neck: jvd (9 cm water), supple Respiratory: clear to auscultation Cardiovascular: regular rate and rhythm Gastrointestinal: non-tender, soft Musculoskeletal: muscle weakness (mild generalized) Extremities: edema (none) Neurological: other (No focal deficits) Results Result Diagram: 12/20/16 1103 12/21/16 0707 Medications Medications Current Medications Aspirin (Aspirin) 81 mg DAILY PO Last administered on 12/23/16t 10:20; Admin Dose 81 MG; Start 12/22/16 at 09:00 Nitroglycerin (Nitroglycerin (Sl Tab) 0.4 Mg) 1 tab Q5M PRN SL CHEST PAIN; Start 12/20/16 at 18:00 Ondansetron HCl (Zofran Inj) 4 mg Q6H PRN IV NAUSEA AND/OR VOMITING; Start at 18:00 Acetaminophen (Tylenol Tab) 650 mg Q6H PRN PO PAIN LEVEL 1-3 OR FEVER Last administered on 12/22/16 14:28; Admin Dose 650 MG; Start 12/20/16 at 18:00 Acetaminophen/ Hydrocodone Bitart ([place] (5/325)) 1 tab Q6H PRN PO MODERATE PAIN LEVEL 4-6; Start 12/20/16 at 18:00 Docusate Sodium (Colace) 100 mg Q12H PRN PO CONSTIPATION; Start 12/20/16 at 18 :00 Magnesium Hydroxide (Milk Of Mag) 30 ml DAILY PRN PO CONSTIPATION; Start 12/20 at 18:00 Bisacodyl (Dulcolax) 5 mg DAILY PRN PO CONSTIPATION; Start 12/20/16 at 18:00 Zolpidem Tartrate (Ambien) 5 mg QHS PRN PO SLEEP; Start 12/20/16 at 18:00 Enoxaparin Sodium (Lovenox) 40 mg DAILY SC Last administered on 12/23/16 10:22 ; Admin Dose 40 MG; Start 12/21/16 at 09:00 Nifedipine (Procardia Xl) 60 mg DAILY PO Last administered on 12/23/16 12:00; Admin Dose 60 MG; Start 12/21/16 at 09:00 Hydralazine HCl (Apresoline) 10 mg Q6H PRN IV FOR SBP ABOVE 165; Start at 23:30 Pantoprazole (Protonix Tab) 40 mg DAILY@06 PO Last administered on 12/23/16 06 :05; Admin Dose 40 MG; Start 12/22/16 at 06:00 ERIN BECKMAN 2, 2017 12:31
[2016-12-23] MEDS ORDERED: NIFEdipine (XL) 30 MG TAB PO SCH (16:16)
[2016-12-24] MEDS ORDERED: NIFEdipine (XL) 30 MG TAB PO SCH (09:00)
--- NOTE | 2016-12-26 12:18 | QN ---
Documentation Comment [id number] APARNA PALACIO MD Dec 26, 2016 12:18
--- NOTE | 2016-12-26 12:18 | QN ---
Documentation Comment [id number] APARNA PALACIO MD Dec 26, 2016 12:18
--- NOTE | 2016-12-26 12:18 | QN ---
Documentation Comment [id number] APARNA PALACIO MD Dec 26, 2016 12:18
--- NOTE | 2016-12-26 20:04 | DS ---
DATE OF ADMISSION: 12/20/2016 DATE OF DISCHARGE: 12/23/2016 HOSPITAL COURSE: The patient was admitted with chest pain, was seen by Dr. Ruiz and Dr. Brenda jackson n consultation. Initial impression: Acute coronary syndrome, hypertension, history of appendectomy , hysterectomy, mastectomy, abnormal LFT. The patient had echocardiogram, shows ejection fraction o f 60% to 65%. The patient had a Lexiscan done, shows no Lexiscan-induced ST or T-wave changes. The patient has no evidence of perfusion defect. Also complaining of abdominal pain. Ultrasound of th e abdomen shows fatty metamorphosis of the liver, status post left nephrectomy and patient was clear ed. DISCHARGE DIAGNOSES: 1. Atypical chest pain. Myocardial infarction ruled out. 2. Hypertension. 3. Dyspepsia. 4. Fatty liver. 5. History of left nephrectomy. 6. Status post Lexiscan negative. 7. Abnormal LFT. 8. The patient also has hypertension. DISCHARGE MEDICATIONS: Continue on nitroglycerin and nifedipine. DISCHARGE INSTRUCTIONS: Follow with PCP and Dr. Gutierrez as an outpatient. Dictated By: APARNA MCCOY/NTS Conf#: [id number] DID#: [id number]
== END 2016-12-23 18:25 | disposition home or self-care (01) | DRG 313 ==
LOC: E/R 10:28 → TEL 14:20
PROVIDERS: ADMIT Internal Medicine Nephrology; ATTEND Internal Medicine Nephrology
DX: R07.89 Other chest pain (principal); I24.9 Acute ischemic heart disease, unspecified; I10 Essential (primary) hypertension; R00.1 Bradycardia, unspecified; R79.89 Other specified abnormal findings of blood chemistry; R10.13 Epigastric pain; Z90.89 Acquired absence of other organs; Z90.5 Acquired absence of kidney; Z90.12 Acquired absence of left breast and nipple
CPT/HCPCS: 71010; 76700; 78452; 80053; 80061; 82550; 82553; 83690; 83880; 84484; 85025; 85610; 85730; 93005; 93017; 93306; A9500; A9505; C9113; J1650; J2785